=== PATIENT | male | born 1935 | race Caucasian/White ===

== ENCOUNTER → 2017-05-12 | Day surgery (SDC) | payer MEDICARE, BC ==
[~2017-05-12] MED LIST: GENTAMICIN SULFATE 80 MG/2 ML VIAL ONE; LACTATED RINGER'S 1000 ML INJ 1,000 ML ONE; MIDAZOLAM HCL 2 MG/2 ML VIAL ONE; ONDANSETRON HCL 4 MG/2 ML VIAL IV PUSH ONE; PROPOFOL 200 MG/20 ML AMP IV ONE; SODIUM CHLORIDE 0.9% 100 ML BAG IV ONE; STERILE WATER FOR INJECTION 20 ML VIAL ONE
--- NOTE | 2017-05-12 12:30 | TN ---
cc: Shant Lorenz MD DATE OF SURGERY: 05/12/2017 PREOPERATIVE DIAGNOSIS: Urethral stricture (ICD-10 code of N35.9). POSTOPERATIVE DIAGNOSIS: Urethral stricture (ICD-10 code of N35.9). PROCEDURE: Cystourethroscopy with direct visual internal urethrotomy (DVIU) (CPT code 05715). INDICATIONS: Mr. Mckeon is an 81-year-old gentleman who has some lower urinary tract symptoms and slow stream on local cystoscopy found to have a grade 4 bulbous urethral stricture and presents now for definitive treatment. 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 Ureteral orifice is normal size, shape and position, effluxing clear urine. There is some mild trabeculation, no diverticula, cellules, stones or tumors identified. PROCEDURE: Procedure as well as risks and benefits were explained to the patient. Informed consent was obtained. The patient was taken to the major operative theater where he was placed in the supine position. The patient was identified as well as the operative site. A universal timeout was performed in standard fashion. At this time, general anesthetic and prophylactic intravenous antibiotics consisting of gentamicin 80 mg was administered. After adequate anesthetic, he was placed in the low dorsal lithotomy position, prepped and draped in usual sterile fashion. At this time, a 22.5 Australian cystoscope with a 30 degree lens was inserted into the urethra to the level of the stricture. At this time, a 0.035 inch hybrid wire was placed through the strictured area, presumably into the bladder. The cystoscope removed. The guidewire was left in place and attached to the drapes. At this time, using an optical urethrotome with a half patel blade, incision at the 12 o'clock position was performed so as to allow for the scope to pass into the bladder. The bladder was then systematically surveyed. The optical urethrotome was then removed as well as the guidewire, and an 18 Australian straight catheter was placed without difficulty into the bladder and placed a straight drain with clear urine. A fluxing 10 mL of sterile water was insufflated into the balloon. The patient tolerated the procedure well, immersed from anesthetic without difficulty and transferred to the recovery room in stable condition to be discharged when criteria is met. The patient will maintain the catheter for 72 hours. MD FERNANDO Fallon/LAKHWINDER , 12:02 PM , 12:29 PM
== END | disposition home or self-care (01) ==
LOC: ESDC 08:52
PROVIDERS: ATTEND Urology
DX: N35.9 Urethral stricture, unspecified (principal)
CPT/HCPCS: 00910; 52276; C1769; J1580; J2405; J3010; J7120; J2250